=== PATIENT | female | born 1960 | race Caucasian/White ===

== ENCOUNTER 2022-02-12 18:05 | Emergency (ER) | payer MEDICARE, BC ==
[~2022-02-12] VITALS: Ht 165.1 cm; Wt 77.1 kg
--- OUTSIDE RECORDS SUMMARY | 2022-02-12 18:06 | XMS ---
PreManage Notification: JOSUÉ ALFORD Security Motor Brakeman Events No recent Security Events currently on file CRITERIA MET - PDMP CARE PROVIDERS [facility] Current PHONE: Unknown Maura has no Care Guidelines for this patient. EOlivia VISIT COUNT (12 MO.) 1 DANK Mcdaniel TOTAL 1 NOTE: Visits indicate total known visits. ED/UCC VISIT TRACKING (12 MO.) 02/12/2022 18:05 [facility] [place] TYPE: Emergency COMPLAINT: - HEADACHE INPATIENT VISIT TRACKING (12 MO.) No inpatient visits to display in this time frame [id number]
[2022-02-12] MEDS ORDERED: ALLOPURINOL100 MG PO (21:29)
[2022-02-12] MEDS ORDERED: PANTOPRAZOLE SO40 MG PO (21:29)
[2022-02-12] MEDS ORDERED: SERTRALINE HCL25 MG PO (21:29)
[2022-02-12] MEDS ORDERED: OXYCODONE HCL5 MG PO (21:29)
[2022-02-12] MEDS ORDERED: AZITHROMYCIN250 MG PO (21:29)
[2022-02-12] MEDS ORDERED: ATORVASTATIN CA40 MG PO (21:29)
[2022-02-12] MEDS ORDERED: TRAMADOL HCL50 MG PO (21:29)
[2022-02-12] MEDS ORDERED: LEVOTHYROXINE175 MCG PO (21:29)
[2022-02-12] MEDS ORDERED: FLUTICASONE-SA1 EAC3 IH (21:30)
[2022-02-12] MEDS ORDERED: LEVALBUTER1.25 MG/0. INH (21:30)
[2022-02-12] MEDS ORDERED: GABAPENTIN100 MG PO (21:30)
[2022-02-13] MEDS ORDERED: HYDROCODON-ACE1 EA10 PO (01:25)
[2022-02-13] MEDS ORDERED: NORVASC10 MG PO (01:25)
== END 2022-02-13 02:06 | disposition home or self-care (01) ==
LOC: ED 18:05
DX: G43.909 Migraine, unspecified, not intractable, without status migrainosus (principal); I10 Essential (primary) hypertension; Z88.5 Allergy status to narcotic agent; Z88.8 Allergy status to other drugs, medicaments and biological substances; Z79.899 Other long term (current) drug therapy; Z79.891 Long term (current) use of opiate analgesic
CPT/HCPCS: 36415; 70450; 80053; 83735; 85025; 96374; 96375; 96376; 99283-25; J0360; J1100; J1170; J1200; J2765; J7040

== ENCOUNTER 2023-01-11 14:50 | Emergency (ER) | payer MEDICARE, BC ==
[~2023-01-11] VITALS: Ht 165.1 cm; Wt 78.0 kg
--- OUTSIDE RECORDS SUMMARY | ~2023-01-11 | XMS | Continuity of Care Document ---
Demographics + + + | Address | [address] | | | [place] [address] | + + + | Preferred Language | Unknown | + + + | Marital Status | | + + + | Sabianism Affiliation | Unknown | + + + | Race | White | + + + | Ethnic Group | Not or | + + + Author + + + | Author | [facility] | + + + | Organization | [facility] | + + + | Address | [address] | | | [place] [address] | + + + | Phone | | + + + Care Team Providers + + + + | Care Ship Construction Teacher Name | Role | Phone | + + + + Unavailable | Unavailable | + + + + Unavailable | Unavailable | + + + + Allergies and Intolerances + + + + + + | date | description | facility | reaction | severity | + + + + + + | (no date) | Upset stomach | [facility] | (no reaction) | (no severity) [facility] | | | + + + + + + | (no date) | Cefepime | [facility] | (no reaction) | (no severity) | [facility] | | | + + + + + + | (no date) | Codeine | [facility] | (no reaction) | (no severity) | | [facility] | | | + + + + + + | (no date) | Cefepime | [facility] | (no reaction) | (no severity) | | [facility] | | | + + + + + + | (no date) | Codeine | [facility] | (no reaction) | (no severity) | | [facility] | | | + + + + + + Encounters No information. Functional Status No information. Immunizations No information. Medications + + + + | date | description | facility | + + + + | 2022-02-13 00:00 | [facility] | + + + + | 2022-02-13 00:00 | Fluticasone | [facility] | | | Propion/Salmeterol | | + + + + | 2022-02-13 00:00 | LEVALBUTEROL HCL | [facility] | + + + + | 2022-02-13 00:00 | ALLOPURINOL | [facility] | + + + + | 2022-02-13 00:00 | AMLODIPINE BESYLATE | [facility] | + + + + | 2022-02-13 00:00 | AZITHROMYCIN | [facility] | + + + + | 2022-02-13 00:00 | GABAPENTIN | [facility] | + + + + | 2022-02-13 00:00 | SERTRALINE HCL | [facility] | + + + + | 2022-02-13 00:00 | PANTOPRAZOLE SODIUM | [facility] | + + + + | 2022-02-13 00:00 | ATORVASTATIN CALCIUM | [facility] | + + + + | 2022-02-13 00:00 | TRAMADOL HCL | [facility] | + + + + | 2022-02-13 00:00 | HYDROCODONE | [facility] | | | BIT/ACETAMINOPHEN | | + + + + | 2022-02-13 00:00 | LEVOTHYROXINE SODIUM | [facility] | + + + + Problems + + + + | date | description | facility | + + + + | 2022-02-13 00:00 | Migraine headache | [facility] | + + + + | 2022-02-13 00:00 | Hypertension | [facility] | + + + + | 2022-04-12 07:26 | HEREDITARY MOTOR AND | [facility] | | | SENSORY NEUROPATHY | | + + + + | 2022-09-13 08:54 | HEREDITARY MOTOR AND | [facility] | | | SENSORY NEUROPATHY | | + + + + Procedures No information. Results/Labs +--------+--------+ +---------+--------+---------+ | test | date | facility | value | unit | notes | +--------+--------+ +---------+--------+---------+ + + | Result panel 1 | + + + + + +-------+ + + | | 2022-02-12 | [facility] | 6.5 | (missing) | (missing) | | (unavailable | 21:36 [facility] | | | | + + + +-------+ + + + + | Result panel 2 | + + + + + +--------+ + + | | 2022-02-12 | [facility] | 86.8 | (missing) | (missing) | | (unavailable | 21:36 [facility] | | | | + + + +--------+ + + + + | Result panel 3 | + + + + + +-------+ + + | | 2022-02-12 | [facility] | 8.6 | (missing) | (missing) | | (unavailable | 21:36 | [facility] ) | [facility] Hospital | | | | + + + +-------+ + + + + | Result panel 4 | + + + + + +-------+ + + | | 2022-02-12 | [facility] | 3.6 | (missing) | (missing) | | (unavailable | 21:36 [facility] | | | | + + + +-------+ + + + + | Result panel 5 | + + + + + +-------+ + + | | 2022-02-12 | [facility] | 0.4 | (missing) | (missing) | | (unavailable | 21:36 [facility] | | | | + + + +-------+ + + + + | Result panel 6 | + + + + + +-------+ + + | | 2022-02-12 | [facility] | 0.6 | (missing) | (missing) | | (unavailable | 21:36 [facility] | | | | + + + +-------+ + + + + | Result panel 7 | + + + + + +-------+---------+ + | | 2022-02-12 | [facility] | 140 | mg/dL | (missing) | | (unavailable | 21:36 | [facility] ) | [facility] | | | | + + + +-------+---------+ + + + | Result panel 8 | + + + + + +------+---------+ + | | 2022-02-12 | [facility] | 41 | mg/dL | (missing) | | (unavailable | 21:36 | [facility] ) | | Hospital | | | | + + + +------+---------+ + + + | Result panel 9 | + + + + + +--------+---------+ + | | 2022-02-12 | [facility] | 5.14 | mg/dL | (missing) | | (unavailable | 21:36 [facility] | | | | + + + +--------+---------+ + + + | Result panel 10 | + + + + + +-----+ + + | | 2022-02-12 | [facility] | 9 | (missing) | (missing) | | (unavailable | 21:36 | [facility] ) | | Hospital | | | | + + + +-----+ + + + + | Result panel 11 | + + + + + +--------+ + + | | 2022-02-12 | [facility] | 7.97 | (missing) | (missing) | | (unavailable | 21:36 [facility] | | | | + + + +--------+ + + + + | Result panel 12 | + + + + + +--------+ + + | | 2022-02-12 | [facility] | 3.86 | (missing) | (missing) | | (unavailable | 21:36 [facility] | | | | + + + +--------+ + + + + | Result panel 13 | + + + + + +-------+ + + | | 2022-02-12 | [facility] | 137 | (missing) | (missing) | | (unavailable | 21:36 | [facility] ) | | Hospital | | | | + + + +-------+ + + + + | Result panel 14 | + + + + + +-------+ + + | | 2022-02-12 | [facility] | 4.0 | (missing) | (missing) | | (unavailable | 21:36 [facility] | | | | + + + +-------+ + + + + | Result panel 15 | + + + + + +------+ + + | | 2022-02-12 | [facility] | 94 | (missing) | (missing) | | (unavailable | 21:36 | [facility] ) | [facility] Hospital | | | | + + + +------+ + + + + | Result panel 16 | + + + + + +------+ + + | | 2022-02-12 | [facility] | 32 | (missing) | (missing) | | (unavailable | 21:36 | [facility] | [facility] | | | | + + + +------+ + + + + | Result panel 17 | + + + + + +--------+ + + | | 2022-02-12 | [facility] | 15.0 | (missing) | (missing) | | (unavailable | 21:36 [facility] | | | | + + + +--------+ + + + + | Result panel 18 | + + + + + +-------+---------+ + | | 2022-02-12 | [facility] | 8.7 | mg/dL | (missing) | | (unavailable | 21:36 | [facility] ) | [facility] Hospital | | | | + + + +-------+---------+ + + + | Result panel 19 | + + + + + +-------+---------+ + | | 2022-02-12 | [facility] | 2.2 | mg/dL | (missing) | | (unavailable | 21:36 | [facility] | [facility] | | | | + + + +-------+---------+ + + + | Result panel 20 | + + + + + +-------+ + + | | 2022-02-12 | [facility] | 8.4 | (missing) | (missing) | | (unavailable | 21:36 [facility] | | | | + + + +-------+ + + + + | Result panel 21 | + + + + + +-------+ + + | | 2022-02-12 | [facility] | 4.0 | (missing) | (missing) | | (unavailable | 21:36 [facility] | [facility] | | | | + + + +-------+ + + + + | Result panel 22 | + + + + + +-------+ + + | | 2022-02-12 | [facility] | 4.4 | (missing) | (missing) | | (unavailable | 21:36 [facility] | | | | + + + +-------+ + + + + | Result panel 23 | + + + + + +--------+ + + | | 2022-02-12 | [facility] | 12.3 | (missing) | (missing) | | (unavailable | 21:36 | [facility] ) | | Hospital | | | | + + + +--------+ + + + + | Result panel 24 | + + + + + +--------+ + + | | 2022-02-12 | [facility] | 0.91 | (missing) | (missing) | | (unavailable | 21:36 | [facility] | [facility] | | | | + + + +--------+ + + + + | Result panel 25 | + + + + + +-------+ + + | | 2022-02-12 | [facility] | 0.7 | (missing) | (missing) | | (unavailable | 21:36 | [facility] | | [facility] | | | | + + + +-------+ + + + + | Result panel 26 | + + + + + +------+ + + | | 2022-02-12 | [facility] | 18 | (missing) | (missing) | | (unavailable | 21:36 | [facility] | [facility] | | | | + + + +------+ + + + + | Result panel 27 | + + + + + +------+ + + | | 2022-02-12 | [facility] | 24 | (missing) | (missing) | | (unavailable | 21:36 | [facility] | [facility] | | | | + + + +------+ + + + + | Result panel 28 | + + + + + +-------+ + + | | 2022-02-12 | [facility] | 104 | (missing) | (missing) | | (unavailable | 21:36 | Art [facility] ) | | Hospital | | | | + + + +-------+ + + + + | Result panel 29 | + + + + + +--------+ + + | | 2022-02-12 | [facility] | 38.2 | (missing) | (missing) | | (unavailable | 21:36 | [facility] | [facility] | | | | + + + +--------+ + + + + | Result panel 30 | + + + + + +--------+ + + | | 2022-02-12 | [facility] | 98.9 | (missing) | (missing) | | (unavailable | 21:36 | Art [facility] ) | [facility] Hospital | | | | + + + +--------+ + + + + | Result panel 31 | + + + + + +--------+ + + | | 2022-02-12 | [facility] | 31.8 | (missing) | (missing) | | (unavailable | 21:36 [facility] | | | | + + + +--------+ + + + + | Result panel 32 | + + + + + +--------+ + + | | 2022-02-12 | [facility] | 32.2 | (missing) | (missing) | | (unavailable | :36 | Art | | | | | ) | | Hospital | | | | + + + +--------+ + + + + | Result panel 33 | + + + + + +--------+ + + | | 2022-02-12 | [facility] | 17.2 | (missing) | (missing) | | (unavailable | 21:36 [facility] Art [facility] | | | | + + + +--------+ + + + + | Result panel 34 | + + + + + +-------+ + + | | 2022-02-12 | [facility] | 168 | (missing) | (missing) | | (unavailable | 21:36 | [facility] | [facility] Hospital | | | | + + + +-------+ + + Social History + + + + | date | description | facility | + + + + | 2022-02-13 00:00 | Unknown if ever smoked | [facility] | + + + + Vital Signs + + +---------+---------+ | date | measurement | value | units | + + +---------+---------+ | 2022-02-12 00:00 | BMI | 28.3 | kg/m2 | + + +---------+---------+ | 2022-02-12 00:00 | height_metric | 165.1 | cm | + + +---------+---------+ | 2022-02-12 00:00 | height_standard | 65 | in | + + +---------+---------+ | 2022-02-12 00:00 | weight_metric | 77.11 | kg | + + +---------+---------+ | 2022-02-12 00:00 | weight_standard | 170 | lb | + + +---------+---------+ | 2022-02-13 00:00 | BP_diastolic | 89 | mmHg | + + +---------+---------+ | 2022-02-13 00:00 | BP_systolic | 178 | mmHg | + + +---------+---------+ | 2022-02-13 00:00 | heart_rate | 69 | /min | + + +---------+---------+ | 2022-02-13 00:00 | o2_saturation | 98 | % | + + +---------+---------+ | 2022-02-13 00:00 | respiration_rate | 16 | /min | + + +---------+---------+ | 2022-02-13 00:00 | temperature_metric | 36.72 | C | | | | | | + + +---------+---------+ | 2022-02-13 00:00 | | 98.1 | F | | | temperature_standar | | | | | d | | | + + +---------+---------+"
--- OUTSIDE RECORDS SUMMARY | ~2023-01-11 | XMS | Continuity of Care Document ---
Demographics + + + | Address | [address] | | | [place] [address] | + + + | Preferred Language | Unknown | + + + | Marital Status | | + + + | Pentecostal Affiliation | Unknown | + + + | Race | White | + + + | Ethnic Group | Not or | + + + Author + + + | Author | [facility] | + + + | Organization | [facility] | + + + | Address | [address] | | | [place] [address] | + + + | Phone | | + + + Care Team Providers + + + + | Care Filler Shredder Name | Role | Phone | + [...] | 2022-02-13 00:00 | [facility] | + + + + | 2022-02-13 00:00 | Fluticasone | [facility] | | | Propion/Salmeterol | | + + + + | 2022-02-13 00:00 | LEVALBUTEROL HCL | [facility] | + + + + | 2022-02-13 00:00 | ALLOPURINOL | [facility] | + + + + | 2022-02-13 00:00 | AMLODIPINE BESYLATE | [facility] | + + + + | 2022-02-13 00:00 | AZITHROMYCIN | [facility] | + + + + | 2022-02-13 00:00 | GABAPENTIN | [facility] | + + + + | 2022-02-13 00:00 | SERTRALINE HCL | [facility] | + + + + | 2022-02-13 00:00 | PANTOPRAZOLE SODIUM | [facility] | + + + + | 2022-02-13 00:00 | ATORVASTATIN CALCIUM | [facility] | + + + + | 2022-02-13 00:00 | TRAMADOL HCL | [facility] | + + + + | 2022-02-13 00:00 | HYDROCODONE | [facility] | | | BIT/ACETAMINOPHEN | | + + + + | 2022-02-13 00:00 | LEVOTHYROXINE SODIUM | [facility] | + + + + Problems + + + + | date | description | facility | + + + + | 2022-02-13 00:00 | Migraine headache | [facility] | + + + + | 2022-02-13 00:00 | Hypertension | [facility] | + + + + | 2022-04-12 [...] | Unknown if ever smoked | [facility] | + + + + Vital Signs [...]
[~2023-01-11 14:50] MED LIST: ALLOPURINOL100 MG PO; ATORVASTATIN CA40 MG PO; AZITHROMYCIN250 MG PO; FLUTICASONE-SA1 EAC3 IH; GABAPENTIN100 MG PO; HYDROCODON-ACE1 EA10 PO; LEVALBUTER1.25 MG/0. INH; LEVOTHYROXINE175 MCG PO; NORVASC10 MG PO; OXYCODONE HCL5 MG PO; PANTOPRAZOLE SO40 MG PO; SERTRALINE HCL25 MG PO; TRAMADOL HCL50 MG PO
--- OUTSIDE RECORDS SUMMARY | 2023-01-11 14:53 | XMS ---
PreManage Notification: JOSUÉ ALFORD Security Per Diem Physical Therapist Assistant Events No recent Security Events currently on file CRITERIA MET - PDM CARE PROVIDERS [facility] Current PHONE: Unknown Maura has no Care Guidelines for this patient. EOlivia VISIT COUNT (12 MO.) 2 [facility] NOTE: Visits indicate total known visits. ED/UCC VISIT TRACKING (12 MO.) 01/11/2023 14:50 [facility] [place] TYPE: Emergency 12/10/2022 19:35 [facility] TYPE: Emergency DIAGNOSES: - End stage renal disease - Hyperkalemia - Hypotension, unspecified - Hypoxemia - Other mechanical complication of surgically created arteriovenous shunt, initial encounter - Dialysis (Shunt Problem) 02/12/2022 18:05 [facility] TYPE: Emergency COMPLAINT: - HEADACHE DIAGNOSES: - Allergy status to narcotic agent - Allergy status to other drugs, medicaments and biological substances - Essential (primary) hypertension - Headache, unspecified - meterman (current) use of opiate analgesic - Migraine, unspecified, not intractable, without status migrainosus - Other terminologist (current) drug therapy INPATIENT VISIT TRACKING (12 MO.) [facility] [facility] [place] [facility] DIAGNOSES: - End stage renal disease - Hyperkalemia - Hypotension, unspecified - Hypoxemia - Other mechanical complication of surgically created arteriovenous shunt, initial encounter - Other specified complication of vascular prosthetic devices, implants and grafts, initial encounter 11/06/2022 08[facility] [facility] [place]: [facility] DIAGNOSES: - Acute on chronic diastolic (congestive) heart failure - Bronchiectasis, uncomplicated - Dependence on renal dialysis - End stage renal disease - Essential (primary) hypertension - Hypothyroidism, unspecified - Kidney transplant failure - Moderate persistent asthma, uncomplicated - Nonrheumatic aortic (valve) stenosis - Presence of prosthetic heart valve - Shortness of breath [id number]
[2023-01-11 15:32] LABS: BASOPHILS 0.7 % (0-2); EOSINOPHILS 3.8 % (0-6); HEMATOCRIT 26.4 % (35.0-50.0); HEMOGLOBIN 8.5 g/dL (12.0-18.0); LYMPHOCYTES 15.5 % (24-44); MCH 31.7 (27-36); MCHC 32.2 g/dl (30-36); MCV 98.5 fl (81-99); PLATELET COUNT 148 K/uL (140-440); RBC 2.68 M/ul (4.3-5.7); RDW 18.1 (10.5-15.0)
[2023-01-11 15:51] LABS: ALBUMIN 3.3 g/dL (3.4-5.0); ALBUMIN/GLOBULIN RATIO 0.92 (1.1-2.4); ANION GAP 17.2 (7-21); BILIRUBIN, TOTAL 0.5 ng/dL (0.2-1.0); BUN/CREATININE RATIO 6.75 (6.0-28.6); CALCIUM 8.1 mg/dL (8.5-10.1); CREATININE, SERUM 8.29 mg/dL (0.55-1.02); POTASSIUM 5.2 mmol/L (3.5-5.1); PROTEIN, TOTAL 6.9 g/dL (6.4-8.2)
[2023-01-11 16:23] LABS: ABO AB; RH POSITIVE
[2023-01-11 16:24] LABS: ANTIBODY SCREEN NEGATIVE; IS CROSSMATCH COMPATIBLE
[2023-01-11 17:46] LABS: BASOPHILS 0.8 % (0-2); EOSINOPHILS 2.2 % (0-6); HEMATOCRIT 26.3 % (35.0-50.0); HEMOGLOBIN 8.4 g/dL (12.0-18.0); LYMPHOCYTES 13.2 % (24-44); MCH 31.7 (27-36); MCHC 31.8 g/dl (30-36); MCV 99.4 fl (81-99); MONOCYTES 5.1 % (0-12); NEUTROPHILS 78.7 % (39-80); PLATELET COUNT 154 K/uL (140-440); RBC 2.65 M/ul (4.3-5.7)
[2023-01-11 17:49] LABS: ANION GAP 16.9 (7-21); BUN/CREATININE RATIO 6.83 (6.0-28.6); CALCIUM 8.2 mg/dL (8.5-10.1); CREATININE, SERUM 8.34 mg/dL (0.55-1.02); POTASSIUM 5.9 mmol/L (3.5-5.1)
[2023-01-11 19:29] LABS: BASOPHILS 0.8 % (0-2); EOSINOPHILS 1.6 % (0-6); HEMATOCRIT 26.4 % (35.0-50.0); HEMOGLOBIN 8.4 g/dL (12.0-18.0); LYMPHOCYTES 21.6 % (24-44); MCH 31.4 (27-36); MCHC 31.7 g/dl (30-36); MONOCYTES 4.8 % (0-12); NEUTROPHILS 71.2 % (39-80); PLATELET COUNT 175 K/uL (140-440); RBC 2.67 M/ul (4.3-5.7); RDW 18.2 (10.5-15.0)
[2023-01-11 19:38] LABS: ANION GAP 19.6 (7-21); BUN/CREATININE RATIO 6.79 (6.0-28.6); CALCIUM 8.8 mg/dL (8.5-10.1); CREATININE, SERUM 8.53 mg/dL (0.55-1.02); POTASSIUM 4.6 mmol/L (3.5-5.1)
[2023-01-11 22:08] VITALS: BP 117/72
== END 2023-01-11 22:08 | disposition short-term general hospital (02) ==
LOC: ED 14:50
PROVIDERS: Emergency Medicine
DX: T82.530A Leakage of surgically created arteriovenous fistula, initial encounter (principal); N18.9 Chronic kidney disease, unspecified; E03.9 Hypothyroidism, unspecified; Y73.8 Miscellaneous gastroenterology and urology devices associated with adverse incidents, not elsewhere classified; Z88.5 Allergy status to narcotic agent; Z88.8 Allergy status to other drugs, medicaments and biological substances; Z79.899 Other long term (current) drug therapy; Z99.2 Dependence on renal dialysis; Z79.890 Hormone replacement therapy; Z20.822 Contact with and (suspected) exposure to COVID-19
CPT/HCPCS: 36415; 80048; 80053; 85025; 86850; 86900; 86901; 86922; 96374; 96375; 99285-25; C9803; J0612; J1815; J7040; U0002

== ENCOUNTER 2024-06-15 16:48 | Emergency (ER) | payer MEDICARE, BC ==
[~2024-06-15] VITALS: Ht 165.1 cm; Wt 75.7 kg
[2024-06-15] MEDS ORDERED: ALBUTEROL/IPRATROPIUM 3 ML NEB INH ONE (18:00)
[2024-06-15 18:05] LABS: CORONAVIRUS COVID-19 AG NEGATIVE (NEGATIVE); INFLUENZA A AG NEGATIVE (NEGATIVE); INFLUENZA B AG NEGATIVE (NEGATIVE)
[2024-06-15 19:14] LABS: PH, VENOUS 7.404 (7.31-7.41)
[2024-06-15 19:17] LABS: BASOPHILS 0.3 % (0-2); EOSINOPHILS 1.2 % (0-6); HEMATOCRIT 31.7 % (35.0-50.0); HEMOGLOBIN 10.7 g/dL (12.0-18.0); LYMPHOCYTES 12.5 % (24-44); MCHC 33.9 g/dl (30-36); MCV 100.3 fl (81-99); MONOCYTES 6.5 % (0-12); NEUTROPHILS 79.5 % (39-80); PLATELET COUNT 111 K/uL (140-440); RBC 3.16 M/ul (4.3-5.7)
[2024-06-15 19:39] LABS: ALBUMIN 3.8 g/dL (3.4-5.0); ALBUMIN/GLOBULIN RATIO 0.81 (1.1-2.4); ANION GAP 18.7 (7-21); BILIRUBIN, TOTAL 0.8 ng/dL (0.2-1.0); BUN/CREATININE RATIO 6.06 (6.0-28.6); CALCIUM 8.6 mg/dL (8.5-10.1); CREATININE, SERUM 7.26 mg/dL (0.55-1.02); POTASSIUM 4.7 mmol/L (3.5-5.1); PROTEIN, TOTAL 8.5 g/dL (6.4-8.2)
[2024-06-15] MEDS ORDERED: PREDNISONE20 MG PO ×2 (20:08→20:57)
[2024-06-15] MEDS ORDERED: ZITHROMAX250 MG PO ×2 (20:08→20:57)
[2024-06-15] MEDS ORDERED: BENZONATATE100 MG PO ×2 (20:11→20:57)
[2024-06-15] MEDS ORDERED: AZITHROMYCIN 250 MG TAB PO ONE (20:15)
[2024-06-15] MEDS ORDERED: predniSONE 20 MG TAB PO ONE (20:15)
[2024-06-15 20:45] VITALS: BP 133/76
--- NOTE | 2024-06-16 18:14 | EKG ---
[facility] [address] [place] [address] Signed Normal sinus rhythm Left axis deviation Abnormal ECG No previous ECGs available Confirmed by Tj Kate MD ([id number]) on 06/16/2024 6:14:26 PM Electronically Signed By: JT KATE MD 06/16/24 181 PATIENT NAME: JOSUÉ ALFORD MAVERICK Electrocardiogram DATE OF : 58 PHYSICIAN: TJ KATE MD REPORT #: [id number] REPORT IS CONFIDENTIAL AND NOT TO BE RELEASED WITHOUT AUTHORIZATION
== END 2024-06-15 20:45 | disposition home or self-care (01) ==
LOC: ED 16:48
PROVIDERS: Emergency Medicine
DX: J96.91 Respiratory failure, unspecified with hypoxia (principal); D64.9 Anemia, unspecified; J40 Bronchitis, not specified as acute or chronic; N18.6 End stage renal disease; E03.9 Hypothyroidism, unspecified; Z87.891 Personal history of nicotine dependence; Z79.890 Hormone replacement therapy; Z79.899 Other long term (current) drug therapy; Z88.5 Allergy status to narcotic agent; Z88.1 Allergy status to other antibiotic agents
CPT/HCPCS: 36415; 71045; 80053; 82803; 83880; 84484; 85025; 93005; 93010; 94640; 99285-25; J7512